=== PATIENT | female | born 1950 | race Caucasian/White ===

== ENCOUNTER 2016-05-07 09:39 | Emergency (ER) | payer OTHER ==
[2016-05-07 09:50] VITALS: TEMP 98; BMI 28.3
[2016-05-07] MEDS ORDERED: ALBUTEROL SO4 2.5/IPRATROPIUM 0.5 INH SOL 3 ML VIAL.NEB. NEB ONE ×2 (10:11→10:19)
[2016-05-07] MEDS ORDERED: predniSONE 20 MG TABLET (UD) PO ONE (10:12)
--- NOTE | 2016-05-07 10:12 | PDOC ---
History of Present Illness - General Chief Complaint: Asthma Stated Complaint: SOB, CONGESTED, COUGH (ASTHMA) Time Seen by Provider: 05/07/16 10:02 History Source: Patient Exam Limitations: No Limitations - History of Present Illness Initial Comments: 05/07/16 10:12 CHIEF COMPLAINT: Wheezing HISTORY OF PRESENT ILLNESS: This is a 65-year-old female with a history of asthma (no history of hospitalizations, uses albuterol MDI as needed) who presents for evaluation of 3 days of dry cough, wheezing, and chest tightness not relieved by albuterol inhaler. She denies fevers/chills, hemoptysis, leg pain/swelling, or any other symptoms. Vital signs on arrival are unremarkable. REVIEW OF SYSTEMS: GENERAL/CONSTITUTIONAL: No fever or chills. No weakness. No weight change. HEAD, EYES, EARS, NOSE AND THROAT: No change in vision. No ear pain or discharge. No sore throat. CARDIOVASCULAR: Chest tightness with coughing/deep breathing. No palpitations. No pain at rest. RESPIRATORY: See HPI. GASTROINTESTINAL: No nausea, vomiting, diarrhea or constipation. NEUROLOGIC: No headache, vertigo, loss of consciousness, or loss of sensation. HEMATOLOGIC/LYMPHATIC: No anemia, easy bleeding, or history of blood clots. ALLERGIC/IMMUNOLOGIC: No hives or skin allergy. No latex allergy. PHYSICAL EXAM: GENERAL: The patient is awake, alert, and fully oriented, in no acute distress. ENT: Pupils equal, round and reactive to light, extraocular movements intact, sclera anicteric, conjunctiva clear. Neck supple. LUNGS: Diffuse expiratory wheezing with decreased air movement. Speaking in full sentences. No tachypnea. CV: RRR, S1/S2, no MRG. Cap refill < 2 sec. ABDOMEN: Soft, non-distended, non-tender. EXTREMITIES: Normal range of motion, no edema. NEUROLOGICAL: Normal speech, normal gait. CN II-XII grossly intact. PSYCH: Normal mood, normal affect. SKIN: Warm, dry, normal turgor, no rashes or lesions noted. Past History - Past Medical History Allergies/Adverse Reactions: Allergies Allergy/AdvReac Type Severity Reaction Status Date / Time acetaminophen Allergy Intermediate Hives Verified 05/07/16 09:46 Home Medications: Ambulatory Orders Albuterol 0.083% Nebulizer Regina [Ventolin 0.083%] 1 neb NEB QID PRN 05/07/16 Albuterol Sulfate Inhaler - [Ventolin HFA Inhaler -] 1 - 2 inh PO Q4H #1 inhaler 05/07/16 Prednisone [Deltasone -] 40 mg PO DAILY #8 tablet 05/07/16 Asthma: Yes Cardiac Disorders: No - Family Disease History Family Disease History: Diabetes: Father - Psycho/Social/Smoking Cessation Hx Anxiety: No Suicidal Ideation: No Smoking History: Never smoked Have you smoked in the past 12 months: No Information on smoking cessation initiated: No Hx Alcohol Use: No Drug/Substance Use Hx: No Substance Use Type: None *Physical Exam - Vital Signs Last Vital Signs Temp Pulse Resp BP Pulse Ox 98.0 F 75 18 126/75 100 05/07/16 09:46 05/07/16 09:46 05/07/16 09:46 05/07/16 09:46 05/07/16 09:46 ED Treatment Course - RADIOLOGY Radiology Studies Ordered: Category Date Time Status CHEST PA & LAT [RAD] Stat Radiology 05/07/16 10:02 Ordered Medical Decision Making - Medical Decision Making 05/07/16 12:10 A/P: 65 year old female with exacerbation of asthma. -CXR -Duoneb followed by albuterol nebs -Prednisone 60mg PO x 1 -Reassess CXR reviewed and interpreted by radiology: no infiltrate Patient is feeling much better Speaking full sentences and ambulating without difficulty Followup instructions and return precautions reviewed *DC/Admit/Observation/Transfer Diagnosis at time of Disposition: Asthma exacerbation - Discharge Dispostion Disposition: HOME Admit: No - Prescriptions Prescriptions: Prednisone [Deltasone -] 40 mg PO DAILY #8 tablet Albuterol Sulfate Inhaler - [Ventolin HFA Inhaler -] 1 - 2 inh PO Q4H #1 inhaler - Referrals Referrals: Lizy Santillan MD [Primary Care Provider] - 2 Days - Patient Instructions Printed Discharge Instructions: Asthma -- Adult Additional Instructions: -Take prednisone as prescribed, starting tomorrow -Continue using albuterol inhaler as needed -Follow up with Dr. Luong this week -Return for worsening chest tightness/wheezing or any other concerning symptoms
[2016-05-07] MEDS ORDERED: predniSONE 20 MG TABLET (UD) ONE (10:18)
[2016-05-07] MEDS ORDERED: ALBUTEROL SO4 0.083% IH SOL 2.5 MG/3 ML VIAL.NEB. NEB ONE ×2 (10:19→11:24)
[2016-05-07] MEDS: ALBUTEROL SO4 0.083% IH SOL 2.5 MG/3 ML VIAL.NEB. NEB SCH ×3 (10:31→11:20)
[2016-05-07 13:04] VITALS: BP 121/70; PULSE 98
== END 2016-05-07 13:03 | disposition home or self-care (01) ==
LOC: JER 09:39
PROC: 3E0F7GC Introduction of Other Therapeutic Substance into Respiratory Tract, Via Natural or Artificial Opening (ICD-10-PCS; principal; 2016-05-07)
PROC: 3E0F7GC Introduction of Other Therapeutic Substance into Respiratory Tract, Via Natural or Artificial Opening (ICD-10-PCS; 2016-05-07)
DX: J45.901 Unspecified asthma with (acute) exacerbation (principal)
CPT/HCPCS: 71020-TC; 94640; 99281-25

== ENCOUNTER 2016-12-24 16:01 | Emergency (ER) | payer OTHER ==
[2016-12-24 16:23] VITALS: BP 125/61; PULSE 81; TEMP 98; BMI 27.1
--- NOTE | 2016-12-24 17:31 | PDOC ---
History of Present Illness - General Chief Complaint: Injury Stated Complaint: FALL/INJURY Time Seen by Provider: 12/24/16 17:14 History Source: Patient Exam Limitations: No Limitations - History of Present Illness Initial Comments: 12/24/16 18:23 Patient was walking yesterday when tripped over a manhole cover, falling forward and landing on both knees and wrists. States had mild whiplash injury, states felt relatively well yesterday but woke up today with multiple aches and pains. Worse pain is her right knee which is swollen and painful although able to bear weight. Also has some shoulder and mid back pain. Patient has a history of chronic back issues and feels that this fall re-exacerbated some of that pain. Has used ibuprofen with some minimal resolved. Occurred: reports: yesterday Severity: reports: mild, moderate Pain Location: reports: back, lower extremity (bilateral knees) Method of Injury: Yes: fall Modifying Factors: improves with: cold therapy Loss of Consciousness: no loss of consciousness Associated Symptoms (Fall): denies symptoms Past History - Travel Traveled outside of the country in the last 30 days: No Close contact w/someone who was outside of country & ill: No - Past Medical History Allergies/Adverse Reactions: Allergies Allergy/AdvReac Type Severity Reaction Status Date / Time acetaminophen Allergy Intermediate Hives Verified 12/24/16 16:54 Home Medications: Ambulatory Orders Albuterol Sulfate Inhaler - [Ventolin HFA Inhaler -] 1 - 2 inh PO Q4H #1 inhaler 05/07/16 Asthma: Yes Cardiac Disorders: No - Family Disease History Family Disease History: Diabetes: Father - Suicide/Smoking/Psychosocial Hx Smoking History: Former smoker Have you smoked in the past 12 months: No Number of Cigarettes Smoked Daily: 0 If you are a former smoker, when did you quit?: 1989 Information on smoking cessation initiated: No Hx Alcohol Use: No Drug/Substance Use Hx: No Substance Use Type: None Trauma Specific PMHX - Complaint Specific PMHX Back Injury: Yes Neck Injury: Yes Review of Systems - Review of Systems Able to Perform ROS?: Yes Is the patient limited French proficient: Yes Constitutional: Yes: Symptoms Reported, See HPI HEENTM: Yes: See HPI. No: Symptoms Reported Respiratory: No: Symptoms reported Musculoskeletal: Yes: Symptoms Reported, See HPI, Joint Pain (bilateral knees), Joint Swelling Integumentary: Yes: Symptoms Reported, See HPI, Bruising, Other (abrasion) Neurological: Yes: Symptoms reported, See HPI All Other Systems: Reviewed and Negative *Physical Exam - Vital Signs Last Vital Signs Temp Pulse Resp BP Pulse Ox 98 F 81 100 H 125/61 100 12/24/16 16:17 12/24/16 16:17 12/24/16 16:17 12/24/16 16:17 12/24/16 16:17 - Physical Exam General Appearance: Yes: Nourished, Appropriately Dressed, Apparent Distress, Mild Distress HEENT: positive: FELIX, Normal ENT Inspection, TMs Normal, Pharynx Normal Neck: positive: Tender, Supple, Other (her vertebral spinous muscle tenderness, no crepitus or step-offs to cervical spine. Has full range of motion in neck but complains of stiffness with movement) Respiratory/Chest: positive: Lungs Clear, Normal Breath Sounds Cardiovascular: positive: Regular Rate Gastrointestinal/Abdominal: positive: Normal Bowel Sounds, Soft Musculoskeletal: positive: Normal Inspection Extremity: positive: Normal Capillary Refill, Normal Range of Motion (however tender and swollen bilateral knees, worse on the right than the left. Patellas are both mobile, without crepitus or step-off. Has tenderness to inferior patella area and ill plateau. Range of motion is intact but has reproduced tenderness with extreme flexion. Neurovascular intact to both feet. Left knee is intact with intact patella without crepitus or step-offs. Medial and lateral nontender), Swelling. negative: Normal Inspection Integumentary: positive: Dry, Warm, Swelling (bilateral superficial abrasions to Castañeda's, with swelling and tenderness to superior tibia bilaterally. Has no crepitus or step-offs, patellas are mobile without deviation or deformity. Negative pain reproduced with medial or lateral ligamentous movement. Neurovascular intact to bilateral feet. Ambulatory but walks with mild limp due to right knee tenderness), Bruising Neurologic: positive: process expert II-XII NML intact, Fully Oriented, Alert, Normal Mood/ Affect, Normal Response, Motor Strength 5/5 Progress Note - Progress Note Progress Note: Status post fall with multiple contusions and knee strains. X-rays negative for fractures dislocations. We'll treat with NSAIDs, Andrea wrap and have follow up as needed with Orth O. reviewed x-ray with Dr. Andrey Amaya *DC/Admit/Observation/Transfer Diagnosis at time of Disposition: Multiple contusions - Discharge Dispostion Disposition: HOME Condition at time of disposition: Stable Admit: No - Referrals Referrals: Lizy Santlilan MD [Primary Care Provider] - Ramsey Jiménez MD [Staff Physician] - - Patient Instructions Printed Discharge Instructions: DI for Contusion, DI for Knee Sprain Additional Instructions: Rest, ice to area on and off for 15 minutes 4-6 times a day Avoid heavy lifting or exercise until pain and swelling is resolved or until further directed Keep area highly elevated to reduce swelling Use splints/Andrea wrap as directed Followup with orthopedist in one to 2 days if not improving, if significantly improved may wait one week for followup with orthopedist May use ibuprofen 2-200 mg tablets every 6 hours as needed for pain - Post Discharge Activity Forms/Work/School Notes: Back to Work
[2016-12-24] MEDS ORDERED: IBUPROFEN 600 MG TABLET (FP) PO ONE ×2 (17:32→17:34)
== END 2016-12-24 19:24 | disposition home or self-care (01) ==
LOC: JERFT 16:01
DX: S80.02XA Contusion of left knee, initial encounter (principal); S80.01XA Contusion of right knee, initial encounter; S60.212A Contusion of left wrist, initial encounter; S60.211A Contusion of right wrist, initial encounter; S83.8X2A Sprain of other specified parts of left knee, initial encounter; S83.8X1A Sprain of other specified parts of right knee, initial encounter; S63.592A Other specified sprain of left wrist, initial encounter; S63.591A Other specified sprain of right wrist, initial encounter; W01.0XXA Fall on same level from slipping, tripping and stumbling without subsequent striking against object, initial encounter; Y93.01 Activity, walking, marching and hiking; Y92.414 Local residential or business street as the place of occurrence of the external cause
CPT/HCPCS: 73562-TC-RT; 99281-25

== ENCOUNTER 2017-02-02 10:55 | Emergency (ER) | payer OTHER ==
[2017-02-02 11:05] VITALS: BP 129/69; TEMP 98.5; BMI 27.5
[2017-02-02 11:29] VITALS: PULSE 95
--- NOTE | 2017-02-02 11:29 | PDOC ---
History of Present Illness - General Chief Complaint: Sore Throat Stated Complaint: RESPIRATORY Time Seen by Provider: 02/02/17 11:17 History Source: Patient Exam Limitations: No Limitations - History of Present Illness Initial Comments: 02/02/17 11:23 66-year-old female presents to the ED with complaints of fever since yesterday which has resolved since last night. Patient states she continues with sore throat difficulty swallowing, and mild change in voice. Patient denies recent sick contacts, recent travel or recent illness. Patient denies medical history except for asthma but denies any wheezing or difficulty breathing. Patient states did not see her PCP and decided come to the ER today. Patient denies change in appetite. Timing/Duration: reports: yesterday Severity: reports: mild Associated Symptoms: reports: fever/chills, sore throat Past History - Travel Traveled outside of the country in the last 30 days: No - Past Medical History Allergies/Adverse Reactions: Allergies Allergy/AdvReac Type Severity Reaction Status Date / Time acetaminophen Allergy Intermediate Hives Verified 02/02/17 10:55 Home Medications: Ambulatory Orders Albuterol Sulfate Inhaler - [Ventolin HFA Inhaler -] 1 - 2 inh PO Q4H #1 inhaler 05/07/16 Amoxicillin - [Amoxicillin 500mg Capsule -] 500 mg PO BID #20 capsule 02/02/17 Amoxicillin - [Amoxicillin 500mg Capsule -] 500 mg PO BID #20 capsule 02/02/17 Asthma: Yes Cardiac Disorders: No COPD: No - Family Disease History Family Disease History: Diabetes: Father - Suicide/Smoking/Psychosocial Hx Smoking History: Never smoked Have you smoked in the past 12 months: No Number of Cigarettes Smoked Daily: 0 If you are a former smoker, when did you quit?: 1989 Information on smoking cessation initiated: No Hx Alcohol Use: No Drug/Substance Use Hx: No Substance Use Type: None Patient Lives Alone: No Lives with/in: spouse/SO Review of Systems - Review of Systems Able to Perform ROS?: Yes Constitutional: Yes: Fever HEENTM: Yes: Throat Pain Respiratory: No: Symptoms reported Cardiac (ROS): No: Symptoms Reported ABD/GI: No: Symptoms Reported Musculoskeletal: No: Symptoms Reported Integumentary: No: Symptoms Reported Neurological: No: Headache *Physical Exam - Vital Signs Last Vital Signs Temp Pulse Resp BP Pulse Ox 98.5 F 112 H 20 129/69 100 11/11/17 10:55 02/02/17 10:55 02/02/17 10:55 02/02/17 10:55 02/02/17 10:55 - Physical Exam General Appearance: Yes: Nourished, Appropriately Dressed. No: Apparent Distress HEENT: positive: TMs Normal, Pharyngeal Erythema, Tonsillar Exudate, Tonsillar Erythema (2+ tonsils bilateral). negative: Pale Conjunctivae Neck: positive: Supple, Lymphadenopathy (R) (upper cervical ) Respiratory/Chest: positive: Lungs Clear, Normal Breath Sounds. negative: Respiratory Distress, Accessory Muscle Use Cardiovascular: positive: Regular Rhythm, Tachycardia. negative: Murmur Gastrointestinal/Abdominal: positive: Soft. negative: Tenderness Integumentary: positive: Normal Color, Warm, Moist Neurologic: positive: Motor Strength 5/5 (ambulatory) Medical Decision Making - Medical Decision Making 02/02/17 11:26 Pt with sore throat, fever, and hoarse voice x 1 day. Pt arrives tachycardic at 112 with a temperature recorded at 98.5. Patient denies myalgia, arthralgia or chills. Clinically patient presents with strep tonsillitis. Pt not warm to touch. Cardiac rrr 95 Discharge pt home with supportive instructions and amoxicillin *DC/Admit/Observation/Transfer Diagnosis at time of Disposition: Strep tonsillitis - Discharge Dispostion Disposition: HOME Condition at time of disposition: Good - Prescriptions Prescriptions: Amoxicillin - [Amoxicillin 500mg Capsule -] 500 mg PO BID #20 capsule Amoxicillin - [Amoxicillin 500mg Capsule -] 500 mg PO BID #20 capsule - Referrals Referrals: Lizy Santillan MD [Primary Care Provider] - - Patient Instructions Printed Discharge Instructions: DI for Strep Throat Additional Instructions: Please take antibiotics as prescribed. Avoid harsh abrasive foods. Take motrin or tylenol for pain. Use chloraseptic spray as needed for pain also. - Post Discharge Activity
== END 2017-02-02 11:32 | disposition home or self-care (01) ==
LOC: JERFT 10:55
DX: J03.00 Acute streptococcal tonsillitis, unspecified (principal); B95.5 Unspecified streptococcus as the cause of diseases classified elsewhere
CPT/HCPCS: 99281-25

== ENCOUNTER 2017-06-23 12:31 | Emergency (ER) | payer OTHER ==
[2017-06-23 12:46] VITALS: BP 122/70; PULSE 118; TEMP 98.2; BMI 28.0
--- NOTE | 2017-06-23 12:46 | PDOC ---
History of Present Illness - General History Source: Patient Exam Limitations: No Limitations - History of Present Illness Initial Comments: 06/23/17 13:14 The patient is a 66-year-old female with a significant past medical history of asthma, who presents to the emergency department for wheezing since last night. She states she was walking up a hill when she started to have difficulty breathing, and notes her wheezing worsened as she walked up some stairs. She admits to a mild cough. She had two albuterol inhaler treatments at home with no significant relief. She denies any history of hospitalization for asthma, but has been given steroid treatments. She denies any recent sickness. The patient denies chest pain, headache and dizziness. The patient denies fever , chills, rhinorrhea, sore throat, nausea, vomit, diarrhea and constipation. The patient denies dysuria, frequency, urgency and hematuria. Allergies: acetaminophen Past Surgical History: None reported Social History: Former smoker. No other toxic habits reported PCP: Dr. Lizy Blackwell <Ambar Omer - Last Filed: 06/23/17 13:14> <Regla Goldman - Last Filed: 06/23/17 14:15> - General Chief Complaint: Asthma Stated Complaint: ASTHMA Time Seen by Provider: 06/23/17 12:42 Past History <Ambar Omer - Last Filed: 06/23/17 13:14> - Past Medical History Asthma: Yes Cardiac Disorders: No COPD: No - Family Disease History Family Disease History: Diabetes: Father - Suicide/Smoking/Psychosocial Hx Smoking History: Never smoked Have you smoked in the past 12 months: No Number of Cigarettes Smoked Daily: 0 If you are a former smoker, when did you quit?: 1989 Information on smoking cessation initiated: No Hx Alcohol Use: No Drug/Substance Use Hx: No Substance Use Type: None <Regla Goldman - Last Filed: 06/23/17 14:15> - Past Medical History Allergies/Adverse Reactions: Allergies Allergy/AdvReac Type Severity Reaction Status Date / Time acetaminophen Allergy Intermediate Hives Verified 06/23/17 12:46 Home Medications: Ambulatory Orders Albuterol Sulfate Inhaler - [Ventolin HFA Inhaler -] 1 - 2 inh PO Q4H #1 inhaler 05/07/16 Albuterol Sulfate Inhaler - [Ventolin Hfa Inhaler -] 1 - 2 inh PO Q4H PRN #1 inhaler 06/23/17 predniSONE [Deltasone -] 40 mg PO DAILY #8 tablet 06/23/17 Review of Systems - Review of Systems Able to Perform ROS?: Yes Comments:: 06/23/17 13:15 GENERAL/CONSTITUTIONAL: No fever or chills. No weakness. HEAD, EYES, EARS, NOSE AND THROAT: No change in vision. No ear pain or discharge. No sore throat. CARDIOVASCULAR: (+) Shortness of breath. No chest pain. RESPIRATORY: (+) Cough. (+) Wheezing. No hemoptysis. GASTROINTESTINAL: No nausea, vomiting, diarrhea or constipation. GENITOURINARY: No dysuria, frequency, or change in urination. MUSCULOSKELETAL: No joint or muscle swelling or pain. No neck or back pain. SKIN: No rash NEUROLOGIC: No headache, vertigo, loss of consciousness, or change in strength/ sensation. ENDOCRINE: No increased thirst. No abnormal weight change. HEMATOLOGIC/LYMPHATIC: No anemia, easy bleeding, or history of blood clots. ALLERGIC/IMMUNOLOGIC: No hives or skin allergy. <Ambar Omer - Last Filed: 06/23/17 13:14> *Physical Exam - Vital Signs Last Vital Signs Temp Pulse Resp BP Pulse Ox 98.2 F 118 H 18 122/70 100 06/23/17 12:33 06/23/17 12:33 06/23/17 12:33 06/23/17 12:33 06/23/17 12:33 - Physical Exam Comments: 06/23/17 13:15 GENERAL: Awake, alert, and fully oriented, in no acute distress HEAD: No signs of trauma EYES: PERRLA, EOMI, sclera anicteric, conjunctiva clear ENT: Auricles normal inspection, hearing grossly normal, nares patent, oropharynx clear without exudates. Moist mucosa NECK: Normal ROM, supple, no lymphadenopathy, JVD, or masses LUNGS: (+) Wheezing in all marx. No conversational dyspnea. Speaking in full sentences. No crackles HEART: Regular rate and rhythm, normal S1 and S2, no murmurs, rubs or gallops ABDOMEN: Soft, nontender, normoactive bowel sounds. No guarding, no rebound. No masses EXTREMITIES: Normal range of motion, no edema. No clubbing or cyanosis. No cords, erythema, or tenderness NEUROLOGICAL: Cranial nerves II through XII grossly intact. Normal speech SKIN: Warm, Dry, normal turgor, no rashes or lesions noted. <Ambar Omer - Last Filed: 06/23/17 13:14> - Vital Signs Last Vital Signs Temp Pulse Resp BP Pulse Ox 98.2 F 118 H 18 122/70 100 06/23/17 12:33 06/23/17 12:33 06/23/17 12:33 06/23/17 12:33 06/23/17 12:33 <Regla Goldman - Last Filed: 06/23/17 14:15> Heart Score/ECG Review - ECG Intrepretation Comment:: 06/23/17 12:55 sinus at 94, nl axis, nl interval, t wave inversions III - which are nonspecific , no acute prachi/std <Regla Goldman - Last Filed: 06/23/17 14:15> Medical Decision Making - Medical Decision Making 06/23/17 12:54 a/p: 66yo female with hx of asthma with wheezing today -nontoxic in appearance -speaking in full sentences -nonproductive cough - mild -no f/c -no rhinorrhea/sore throat/somers -will monitor and reassess -suspect mild asthma exacerbation 06/23/17 13:46 re-eval: feeling much better still with wheezing will give another breathing treatment will send rx of ventolin and prednisone to pharmacy 06/23/17 14:14 re-eval: feeling much better lungs with soft end expiroatyr wheezing, much improved. discussed all reasons to return to the ED and need for follow up answered all questions <Regla Goldman - Last Filed: 06/23/17 14:15> *DC/Admit/Observation/Transfer - Attestations Scribe Attestion: 06/23/17 13:15 Documentation prepared by Ambar Omer, acting as medical insurance claims processor for Regla Goldman DO, MD/. <Ambar Omer - Last Filed: 06/23/17 13:14> - Discharge Dispostion Admit: No - Attestations Physician Attestion: 06/23/17 13:49 I, Dr. Regla Goldman, DO, attest that this document has been prepared under my direction and personally reviewed by me in its entirety. I further attest, that it accurately reflects all work, treatment, procedures and medical decision -making performed by me. <Regla Goldman - Last Filed: 06/23/17 14:15> Diagnosis at time of Disposition: Asthma exacerbation - Discharge Dispostion Disposition: HOME Condition at time of disposition: Stable - Prescriptions Prescriptions: Albuterol Sulfate Inhaler - [Ventolin Hfa Inhaler -] 1 - 2 inh PO Q4H PRN #1 inhaler PRN Reason: Wheezing predniSONE [Deltasone -] 40 mg PO DAILY #8 tablet - Referrals Referrals: Lizy Santillan MD [Primary Care Provider] - Everton Khoury MD, [Staff Physician] - - Patient Instructions Printed Discharge Instructions: Asthma -- Adult Additional Instructions: Please take all medications as prescribed. Please return to the ED with any further concerns. Please make an appointment to see your PMD. Please make an appointment to see the flexible babysitter. - Post Discharge Activity
[2017-06-23] MEDS ORDERED: ALBUTEROL SO4 2.5/IPRATROPIUM 0.5 INH SOL 3 ML VIAL.NEB. NEB ONE ×4 (12:51→13:46)
[2017-06-23] MEDS ORDERED: predniSONE 20 MG TABLET (UD) PO ONE (12:52)
[2017-06-23] MEDS ORDERED: predniSONE 20 MG TABLET (UD) ONE (13:24)
--- NOTE | 2017-06-24 11:37 | EKG ---
Test Reason : Blood Pressure : / mmHG Vent. Rate : 094 BPM Atrial Rate : 094 BPM P-R Int : 134 ms QRS Dur : 088 ms QT Int : 374 ms P-R-T Axes : 071 074 011 degrees QTc Int : 467 ms NORMAL SINUS RHYTHM POSSIBLE LEFT ATRIAL ENLARGEMENT BORDERLINE ECG WHEN COMPARED WITH ECG OF 24-JUN-2015 18:42, NO SIGNIFICANT CHANGE WAS FOUND Confirmed by MYLES MONTANA MD ([id number]) on 06/24/2017 11:37:32 AM Referred By: Confirmed By:MYLES MONTANA MD
== END 2017-06-23 15:02 | disposition home or self-care (01) ==
LOC: JER 12:31
PROC: 3E0F7GC Introduction of Other Therapeutic Substance into Respiratory Tract, Via Natural or Artificial Opening (ICD-10-PCS; principal; 2017-06-23)
PROC: 3E0F7GC Introduction of Other Therapeutic Substance into Respiratory Tract, Via Natural or Artificial Opening (ICD-10-PCS; 2017-06-23)
PROC: 3E0F7GC Introduction of Other Therapeutic Substance into Respiratory Tract, Via Natural or Artificial Opening (ICD-10-PCS; 2017-06-23)
DX: J45.901 Unspecified asthma with (acute) exacerbation (principal)
CPT/HCPCS: 93005; 93010; 94640; 99282-25

== ENCOUNTER 2017-08-15 12:14 | Emergency (ER) | payer OTHER ==
[2017-08-15 12:43] VITALS: BP 123/67; PULSE 90; TEMP 98.8; BMI 28.0
[2017-08-15] MEDS ORDERED: KETOROLAC TROMETHAMINE 60 MG/2 ML VIAL IM ONE (13:10)
--- NOTE | 2017-08-15 13:18 | PDOC ---
History of Present Illness - General Chief Complaint: Back Pain Stated Complaint: RT HIP PAIN Time Seen by Provider: 08/15/17 12:53 History Source: Patient Exam Limitations: No Limitations - History of Present Illness Initial Comments: 08/15/17 13:18 c/o lower back to the right lower back and the buttock radiates to lateral thigh. no abd pain , neg fever neg urinary or bowel dysfunction. 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 Pt has history of sciatica. Severity: reports: mild Pain Location: reports: back Past History - Past Medical History Allergies/Adverse Reactions: Allergies Allergy/AdvReac Type Severity Reaction Status Date / Time acetaminophen Allergy Intermediate Hives Verified 08/15/17 12:40 Home Medications: Ambulatory Orders Naproxen [Naprosyn] 500 mg PO BID #14 tablet 08/15/17 Asthma: Yes Cardiac Disorders: No COPD: No Other medical history: DENIES. - Family Disease History Family Disease History: Diabetes: Father - Suicide/Smoking/Psychosocial Hx Smoking History: Former smoker Have you smoked in the past 12 months: No Number of Cigarettes Smoked Daily: 0 If you are a former smoker, when did you quit?: 1989 Information on smoking cessation initiated: No Hx Alcohol Use: No Drug/Substance Use Hx: No Substance Use Type: None Trauma Specific PMHX - Complaint Specific PMHX Back Injury: Yes Neck Injury: Yes *Physical Exam - Vital Signs Last Vital Signs Temp Pulse Resp BP Pulse Ox 98.8 F 90 19 123/67 98 08/15/17 12:41 08/15/17 12:41 08/15/17 12:41 08/15/17 12:41 08/15/17 12:41 - Physical Exam General Appearance: Yes: Nourished, Appropriately Dressed HEENT: positive: EOMI, FELIX Neck: negative: Tender Respiratory/Chest: positive: Lungs Clear, Normal Breath Sounds Cardiovascular: positive: Regular Rhythm, Regular Rate Musculoskeletal: positive: Normal Inspection, Other (pos SLR right side at 45 degrees, nv intact 5/5 strength of the leg, steady gait no diffucuclty ambulating ). negative: CVA Tenderness, CVA Tenderness (R), CVA Tenderness (L) , Decreased Range of Motion, Muscle Spasm, Vertebral Tenderness Extremity: positive: Normal Capillary Refill, Normal Inspection, Normal Range of Motion Integumentary: positive: Normal Color, Dry, Warm Neurologic: positive: Fully Oriented, Alert, Normal Mood/Affect, Normal Response , Motor Strength 07/27 Medical Decision Making - Medical Decision Making 08/15/17 13:22 cc: lower back to right buttock pain to right lateral thigh neg abd pain neg nvd neg fever or injury pt has pain with sitting exacerbated with standing will give toradol now dc with naprosyn and strict follow up with orthopedist *DC/Admit/Observation/Transfer Diagnosis at time of Disposition: Sciatica Qualifiers: Laterality: right Qualified Code(s): M54.31 - Sciatica, right side - Discharge Dispostion Disposition: HOME Condition at time of disposition: Good - Prescriptions Prescriptions: Naproxen [Naprosyn] 500 mg PO BID #14 tablet - Referrals Referrals: Lizy Santillan MD [Primary Care Provider] - - Patient Instructions Additional Instructions: apply warm compresses to the lower back every 4hrs for 30 minutes take the medication as prescribed for pain please follow with your primary care doctor for follow up avoid heavy lifting when you can return if any worsening symptoms - Post Discharge Activity
[2017-08-15] MEDS ORDERED: KETOROLAC TROMETHAMINE 60 MG/2 ML VIAL ONE (13:19)
== END 2017-08-15 13:55 | disposition home or self-care (01) ==
LOC: JERFT 12:14
PROC: 3E0233Z Introduction of Anti-inflammatory into Muscle, Percutaneous Approach (ICD-10-PCS; principal; 2017-08-15)
DX: M54.41 Lumbago with sciatica, right side (principal); Z87.09 Personal history of other diseases of the respiratory system; Z87.891 Personal history of nicotine dependence
CPT/HCPCS: 99281-25

== ENCOUNTER 2017-09-16 14:50 | Emergency (ER) | payer OTHER ==
--- NOTE | 2017-09-16 14:56 | PDOC ---
Rapid Medical Evaluation Time Seen by Provider: 09/16/17 14:54 Medical Evaluation: Allergies Allergy/AdvReac Type Severity Reaction Status Date / Time acetaminophen Allergy Intermediate Hives Verified 08/15/17 12:40 09/16/17 14:54 I have performed a brief in-person evaluation of this patient. The patient presents with a chief complaint of:cough and nasal congestion X 4 days Pertinent physical exam findings: nasal congestion, course rhonchi and expiratory wheeze, pt is in NAD I have ordered the following: CXR The patient will proceed to the fast track for further evaluation. 09/16/17 14:59 09/16/17 15:02
[2017-09-16 15:02] VITALS: BP 123/82; PULSE 88; TEMP 98; BMI 29.7
[2017-09-16] MEDS ORDERED: predniSONE 20 MG TABLET (UD) PO ONE (16:35)
[2017-09-16] MEDS ORDERED: ALBUTEROL SO4 2.5/IPRATROPIUM 0.5 INH SOL 3 ML VIAL.NEB. NEB ONE ×2 (16:35→16:39)
--- NOTE | 2017-09-16 16:35 | PDOC ---
History of Present Illness - General Chief Complaint: Asthma Stated Complaint: SOB (ASTHMA) Time Seen by Provider: 09/16/17 14:54 History Source: Patient Exam Limitations: No Limitations - History of Present Illness Initial Comments: 09/16/17 16:34 Patient here with complaints of what she thinks is a sinus exacerbation due to ALLERGIES. Has taken no medications but has needed to use her albuterol pump for the past few days. Complaint thick yellow phlegm, runny nose, and sore throat pain worse in the morning. States this felt feverish and chills but has no fever today. 09/16/17 16:34 Timing/Duration: reports: changing over time, getting worse Severity: reports: mild, moderate Modifying Factors: improves with: albuterol inhaler, albuterol nebulizer Associated Symptoms: reports: facial pain, fever/chills, headache, nasal drainage, sore throat, wheezing Past History - Travel Traveled outside of the country in the last 30 days: No Close contact w/someone who was outside of country & ill: No - Past Medical History Allergies/Adverse Reactions: Allergies Allergy/AdvReac Type Severity Reaction Status Date / Time acetaminophen Allergy Intermediate Hives Verified 09/16/17 14:59 Home Medications: Ambulatory Orders Cetirizine HCl [Zyrtec -] 10 mg PO DAILY #30 tablet 09/16/17 predniSONE [Deltasone -] 20 mg PO BID #8 tablet 09/16/17 Asthma: Yes Cardiac Disorders: No CVA: No COPD: No DVT: No - Family Disease History Family Disease History: Diabetes: Father - Suicide/Smoking/Psychosocial Hx Smoking History: Never smoked Have you smoked in the past 12 months: No Number of Cigarettes Smoked Daily: 0 If you are a former smoker, when did you quit?: 1989 Information on smoking cessation initiated: No Hx Alcohol Use: No Drug/Substance Use Hx: No Substance Use Type: None Review of Systems - Review of Systems Able to Perform ROS?: Yes Is the patient limited Persian proficient: Yes Constitutional: Yes: Symptoms Reported, See HPI, Fever, Loss of Appetite, Malaise HEENTM: Yes: Symptoms Reported, See HPI, Nose Congestion Respiratory: Yes: Symptoms reported, See HPI, Cough, Wheezing Musculoskeletal: Yes: Symptoms Reported Integumentary: Yes: Symptoms Reported, See HPI All Other Systems: Reviewed and Negative *Physical Exam - Vital Signs Last Vital Signs Temp Pulse Resp BP Pulse Ox 98.0 F 88 18 123/82 100 09/16/17 15:00 09/16/17 15:00 09/16/17 15:00 09/16/17 15:00 09/16/17 15:00 - Physical Exam General Appearance: Yes: Nourished, Appropriately Dressed, Apparent Distress, Mild Distress HEENT: positive: FELIX, TMs Normal (congested but landmarks easily visualized), Pharynx Normal, Tonsillar Erythema, Rhinorrhea. negative: Tonsillar Exudate Neck: positive: Supple, Lymphadenopathy (R), Lymphadenopathy (L). negative: Tender Respiratory/Chest: positive: Lungs Clear, Wheezing (course inspiratory and expiratory breath sounds, bilaterally). 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 We'll treat with prednisone and DuoNeb's reevaluated *DC/Admit/Observation/Transfer Diagnosis at time of Disposition: Asthma exacerbation Qualifiers: Asthma severity: mild Asthma persistence: intermittent Qualified Code(s): J45.21 - Mild intermittent asthma with (acute) exacerbation Allergic rhinitis Qualifiers: Allergic rhinitis trigger: unspecified Allergic rhinitis seasonality: seasonal Qualified Code(s): J30.2 - Other seasonal allergic rhinitis - Discharge Dispostion Disposition: HOME Condition at time of disposition: Stable Decision to Admit order: No - Prescriptions Prescriptions: Cetirizine HCl [Zyrtec -] 10 mg PO DAILY #30 tablet predniSONE [Deltasone -] 20 mg PO BID #8 tablet - Referrals Referrals: Jaimie Garcia MD [Primary Care Provider] - - Patient Instructions Printed Discharge Instructions: Asthma -- Adult Additional Instructions: Rest, drink lots of fluids: Teas, water, soups, Pedialyte Saltwater gargles Steamy showers/seem to face break up mucus Avoid contact with others until fevers and cough resolved Lots of handwashing and good hygiene Continue [id number] medications for symptomatic relief Tylenol or Motrin for fever and pain Continue albuterol nebulizers every 4-6 hours for the next 2 days then as needed for continued cough Prednisone as directed until completed Continue Zyrtec daily until pollen is reduced Followup with private physician in one to 2 days Return to emergency department / pediatric hospital for worsened symptoms, fevers, dehydration - Post Discharge Activity
[2017-09-16] MEDS ORDERED: predniSONE 20 MG TABLET (UD) ONE (16:39)
== END 2017-09-16 17:10 | disposition home or self-care (01) ==
LOC: JERFT 14:50
PROC: 3E0F7GC Introduction of Other Therapeutic Substance into Respiratory Tract, Via Natural or Artificial Opening (ICD-10-PCS; principal; 2017-09-16)
DX: J45.901 Unspecified asthma with (acute) exacerbation (principal); J30.2 Other seasonal allergic rhinitis
CPT/HCPCS: 71046-TC-FY; 94640; 99281-25; J7620

== ENCOUNTER 2018-03-27 07:35 | Emergency (ER) | payer OTHER ==
[2018-03-27 07:42] VITALS: BP 137/70; PULSE 107; TEMP 98.6; BMI 29.7
--- NOTE | 2018-03-27 08:57 | PDOC ---
History of Present Illness - General Chief Complaint: Palpitations Stated Complaint: HEART PALPITATIONS Time Seen by Provider: 03/27/18 08:11 History Source: Patient Exam Limitations: No Limitations - History of Present Illness Initial Comments: 03/27/18 09:00 67-year-old female with history of asthma and high cholesterol here for evaluation of intermittent palpitations and shortness of breath since ' [place]. Patient states symptoms began while watching TV and is resolved within minutes. Patient states symptoms have not aggravating factors such as movement increased stress. Patient also states history of anxiety but states has not had an episode in like 3 years. Patient denies thyroid disorders, recent change in weight, urinary difficulties, fever, chills, abdominal pain, headache, dizziness , chest pain or recent travel/surgery Presenting Symptoms: Other (palpitations) Timing/Duration: reports: intermittent Severity/Quality: reports: mild Activities at Onset: reports: none Prior Chest Pain/Cardiac Workup: reports: Other (holter monitor) Associated Symptoms: Yes: Palpitations Past History - Travel Traveled outside of the country in the last 30 days: No - Past Medical History Allergies/Adverse Reactions: Allergies Allergy/AdvReac Type Severity Reaction Status Date / Time acetaminophen Allergy Intermediate Hives Verified 09/16/17 14:59 Home Medications: Ambulatory Orders Cetirizine HCl [Zyrtec -] 10 mg PO DAILY #30 tablet 09/16/17 predniSONE [Deltasone -] 20 mg PO BID #8 tablet 09/16/17 Asthma: Yes Cardiac Disorders: No CVA: No COPD: No DVT: No - Family Disease History Family Disease History: Diabetes: Father - Immunization History Immunization Up to Date: Yes - Suicide/Smoking/Psychosocial Hx Smoking History: Never smoked Have you smoked in the past 12 months: No Number of Cigarettes Smoked Daily: 0 If you are a former smoker, when did you quit?: 1989 Information on smoking cessation initiated: No Hx Alcohol Use: No Drug/Substance Use Hx: No Substance Use Type: None Patient Lives Alone: No Lives with/in: spouse/SO Review of Systems - Review of Systems Able to Perform ROS?: Yes Constitutional: No: Symptoms Reported HEENTM: No: Symptoms Reported Respiratory: Yes: Shortness of Breath Cardiac (ROS): Yes: Palpitations. No: Chest Pain, Lightheadedness ABD/GI: No: Symptoms Reported : No: Symptoms Reported Musculoskeletal: No: Symptoms Reported Integumentary: No: Symptoms Reported Neurological: No: Symptoms reported *Physical Exam - Vital Signs Last Vital Signs Temp Pulse Resp BP Pulse Ox 98.6 F 107 H 22 H 137/70 99 03/27/18 07:39 03/27/18 07:39 03/27/18 07:39 03/27/18 07:39 03/27/18 07:39 - Physical Exam General Appearance: Yes: Nourished, Appropriately Dressed. No: Apparent Distress HEENT: negative: Pale Conjunctivae Neck: positive: Supple Respiratory/Chest: positive: Wheezing (on expiration bilaterally). negative: Respiratory Distress, Accessory Muscle Use Cardiovascular: positive: Regular Rhythm, Tachycardia (103). negative: Murmur Extremity: negative: Pedal Edema Integumentary: positive: Normal Color, Warm, Moist Neurologic: positive: Motor Strength 5/5 (ambulatory) Heart Score/ECG Review - ECG Intrepretation Rhythm: Regular Rhythm (rate 103, sinus tachycardia) - ECG Impressions Normal ECG: Yes Moderate Sedation - Procedure Monitoring Vital Signs: Procedure Monitoring Vital Signs Temperature 98.6 F 03/27/18 07:39 Pulse Rate 107 H 03/27/18 07:39 Respiratory Rate 22 H 03/27/18 07:39 Blood Pressure 137/70 03/27/18 07:39 O2 Sat by Pulse Oximetry (%) 99 03/27/18 07:39 ED Treatment Course - LABORATORY CBC & Chemistry Diagram: 03/27/18 09:00 03/27/18 09:00 - ADDITIONAL ORDERS Additional order review: Laboratory Results 03/27/18 03/27/18 09:00 09:00 D-Dimer 328 Sodium 140 Potassium 4.1 Chloride 107 Carbon Dioxide 25 Anion Gap 8 BUN 19 H Creatinine 0.7 Creat Clearance w eGFR > 60 Random Glucose 95 Calcium 9.0 Total Bilirubin 0.4 AST 24 ALT 35 Alkaline Phosphatase 87 Creatine Kinase 64 Troponin I < 0.02 Total Protein 7.9 Albumin 4.1 TSH 3.97 H 03/27/18 09:00 RBC 4.61 MCV 89.5 MCHC 34.5 RDW 13.8 MPV 8.0 Neutrophils % 52.7 D Lymphocytes % 29.5 D Monocytes % 7.3 Eosinophils % 10.0 H D Basophils % 0.5 - RADIOLOGY Radiology Studies Ordered: Category Date Time Status CHEST - PA [RAD] Stat Radiology 03/27/18 08:12 Completed Medical Decision Making - Medical Decision Making 03/27/18 08:50 Complaint: Intermittent palpitations and shortness of breath since New Year's [place] no aggravating or alleviating factors. No other complaints. Patient states history of the same in the past seen a disbursing agent but does not follow one presently. Patient denies thyroid disorders, drug use, recent travel, cough, headache, fever or chills Sinus tachycardia at 103 no murmur patient with expiratory bilateral wheeze. Patient states history of asthma and did not use inhaler today Plan: EKG, chest x-ray, cardiac monitoring, cardiac profile, CBC, comp TSH. 03/27/18 11:03 Laboratory Tests 03/27/18 03/27/18 09:00 09:00 D-Dimer 328 Sodium 140 Potassium 4.1 Chloride 107 Carbon Dioxide 25 Anion Gap 8 BUN 19 H Creatinine 0.7 Random Glucose 95 Calcium 9.0 Total Bilirubin 0.4 AST 24 ALT 35 Alkaline Phosphatase 87 Creatine Kinase 64 Troponin I < 0.02 Total Protein 7.9 Albumin 4.1 TSH 3.97 H Pt states has not had palpitations since arrival. Will give consult to cardiology and have pt bring copy of labs to PMD ( TSH) *DC/Admit/Observation/Transfer Diagnosis at time of Disposition: Palpitations - Discharge Dispostion Disposition: HOME Condition at time of disposition: Good - Referrals Referrals: Chas Keller MD [Staff Physician] - - Patient Instructions Printed Discharge Instructions: DI for Palpitations Additional Instructions: At this this time, you have been discharged and recommended to follow up with cardiology. If you develop worsening symptoms, please return to the ED - Post Discharge Activity
[2018-03-27 09:17] LABS: BASO % 0.5 % (0-2.0); HEMATOCRIT 41.2 % (32.4-45.2); HEMOGLOBIN 14.2 GM/dL (10.7-15.3); LYMPH % 29.5 % (8-40); MCH 30.9 pg (25.7-33.7); MCHC 34.5 g/dl (32.0-36.0); MEAN CELL VOLUME 89.5 fl (80-96); MONO % 7.3 % (3.8-10.2); NEUT % 52.7 % (42.8-82.8); PLATELET COUNT 335 K/MM3 (134-434); RBC 4.61 M/mm3 (3.60-5.2); RDW 13.8 % (11.6-15.6); WHITE BLOOD COUNT 4.5 K/mm3 (4.0-10.0)
[2018-03-27 10:19] LABS: ALBUMIN 4.1 g/dl (3.4-5.0); ALK PHOS 87 U/L (45-117); ANION GAP 8 MMOL/L (8-16); BILIRUBIN,TOTAL 0.4 mg/dL (0.2-1); BLOOD UREA NITROGEN 19 mg/dL (7-18); CHLORIDE 107 mmol/L (98-107); CO2 25 mmol/L (21-32); CREATININE 0.7 mg/dL (0.55-1.3); GLUCOSE,RANDOM 95 mg/dL (74-106); POTASSIUM 4.1 mmol/L (3.5-5.1); SGOT/AST 24 U/L (15-37); SGPT/ALT 35 U/L (13-61); SODIUM 140 mmol/L (136-145); TOT PROT 7.9 g/dl (6.4-8.2)
[2018-03-27 11:32] LABS: URINE APPEARANCE CLEAR; URINE BILIRUBIN NEGATIVE (<2.0 mg/dL); URINE COLOR LTYELLOW; URINE GLUCOSE (UA) NEGATIVE (NEGATIVE); URINE KETONE NEGATIVE (NEGATIVE); URINE LEUK ESTERASE NEGATIVE (NEGATIVE); URINE NITRITE NEGATIVE (NEGATIVE); URINE PROTEIN NEGATIVE (NEGATIVE); URINE UROBILINOGEN NEGATIVE mg/dL (0.2-1.0)
--- NOTE | 2018-03-27 16:16 | EKG ---
Test Reason : Blood Pressure : / mmHG Vent. Rate : 103 BPM Atrial Rate : 103 BPM P-R Int : 152 ms QRS Dur : 084 ms QT Int : 372 ms P-R-T Axes : 071 071 000 degrees QTc Int : 487 ms SINUS TACHYCARDIA POSSIBLE LEFT ATRIAL ENLARGEMENT BORDERLINE ECG WHEN COMPARED WITH ECG OF 23-JUN-2017 12:47, NO SIGNIFICANT CHANGE WAS FOUND Confirmed by ALECIA MOLINA MD ([id number]) on 03/27/2018 4:16:02 PM Referred By: Confirmed By:ALECIA MOLINA MD
== END 2018-03-27 11:34 | disposition home or self-care (01) ==
LOC: JER 07:35
DX: R00.2 Palpitations (principal)
CPT/HCPCS: 36415; 71045-TC-FY; 80053; 81003; 82550; 84443; 84484; 85025; 85379; 93005; 93010; 99282-25

== ENCOUNTER 2018-12-18 12:11 | Emergency (ER) | payer OTHER ==
[2018-12-18 12:17] VITALS: BP 131/63; PULSE 109; TEMP 98.4; BMI 29.5
--- NOTE | 2018-12-18 13:47 | PDOC ---
History of Present Illness - General Chief Complaint: Cold Symptoms Stated Complaint: ASTHMA Time Seen by Provider: 12/18/18 13:44 History Source: Patient Exam Limitations: No Limitations - History of Present Illness Initial Comments: 12/18/18 15:23 Chief complaint: Cough Patient is a 68-year-old female with a history of asthma, has not bothered her since last winter when she was seen in the ER comes in with 2 days of cough, runny nose and concerned she has bronchitis. Shouldn't has not used her inhaler or nebulizer. No fever or shortness of breath GENERAL/CONSTITUTIONAL: No fever, weakness. dizziness HEAD, EYES, EARS, NOSE AND THROAT: No change in vision. No ear pain or discharge. No sore throat. CARDIOVASCULAR: No chest pain RESPIRATORY: No shortness of breath +cough GASTROINTESTINAL: No pain, nausea, vomiting, diarrhea or constipation GENITOURINARY: No dysuria MUSCULOSKELETAL: No neck or back pain SKIN: No rash NEUROLOGIC: No headache, vertigo, loss of consciousness, or loss of sensation. GENERAL: The patient is awake, alert, and fully oriented, in no acute distress. HEAD: Normal with no signs of trauma. EYES: Pupils equal, round and reactive to light, sclera anicteric, conjunctiva clear. ENT: pharynx: no erythema, no exudate, uvula midline NECK: supple CHEST: Interval wheezing, no shortness of breath, nontender, rr ABD: soft, nontender BACK: no tenderness or signs of injury EXTREMITIES: Normal range of motion, no edema. NEUROLOGICAL: Normal speech, normal gait. SKIN: Warm, Dry Is this a multiple visit Asthma Patient?: Yes Past History - Past Medical History Allergies/Adverse Reactions: Allergies Allergy/AdvReac Type Severity Reaction Status Date / Time acetaminophen Allergy Intermediate Hives Verified 12/18/18 12:17 Home Medications: Ambulatory Orders Cetirizine HCl [Zyrtec -] 10 mg PO DAILY #30 tablet 09/16/17 predniSONE [Deltasone -] 20 mg PO BID #8 tablet 09/16/17 Albuterol Sulfate Inhaler - [Ventolin Hfa Inhaler -] 2 inh PO Q4H #1 inh Prednisone [Deltasone] 40 mg PO DAILY #8 tablet 12/18/18 Asthma: Yes Cardiac Disorders: No CVA: No COPD: No DVT: No - Immunization History Immunization Up to Date: Yes - Psycho Social/Smoking Cessation Hx Smoking History: Never smoked Have you smoked in the past 12 months: No Number of Cigarettes Smoked Daily: 0 If you are a former smoker, when did you quit?: 1989 Information on smoking cessation initiated: No Hx Alcohol Use: No (SOCIAL) Drug/Substance Use Hx: No Substance Use Type: None *Physical Exam - Vital Signs Last Vital Signs Temp Pulse Resp BP Pulse Ox 98.4 F 109 H 20 131/63 98 12/18/18 12:14 12/18/18 12:14 12/18/18 12:14 12/18/18 12:14 12/18/18 12:14 Medical Decision Making - Medical Decision Making 12/18/18 15:27 68-year-old female with history of asthma, no episodes in the past 9-10 months. Patient with URI symptoms 2 days, no fever, no shortness of breath, has not used her asthma meds was found to have minimal wheezing with out signs of respiratory distress. No imaging indicated. Patient will get one nebulizer treatment here, start on prednisone. Asthma plan initiated an order sent to respiratory. Asthma action plan filled out with patient. Patient sent home with Ventolin inhaler, has nebulizer at home and meds for the nebulizer. Also that on 5 days of prednisone and explained to her about the Flovent, prescribed 44 g per inhalation. Patient felt better after one treatment. She will follow-up with her doctor by early next week and return if worse. Discussed issues, findings, results, applicable medications and treatments and follow-up. All these were understood and all questions were answered Discharge - Discharge Information Problems reviewed: Yes Clinical Impression/Diagnosis: URI (upper respiratory infection) Qualifiers: URI type: unspecified URI Qualified Code(s): J06.9 - Acute upper respiratory infection, unspecified Asthma Qualifiers: Asthma severity: mild Asthma persistence: unspecified Asthma complication type : uncomplicated Qualified Code(s): J45.909 - Unspecified asthma, uncomplicated Condition: Stable Disposition: HOME - Admission No - Additional Discharge Information Prescriptions: Albuterol Sulfate Inhaler - [Ventolin Hfa Inhaler -] 2 inh PO Q4H #1 inh Prednisone [Deltasone] 40 mg PO DAILY #8 tablet Prescription Drug Monitoring Program (I-STOP) results: I-STOP not reviewed - Follow up/Referral - Patient Discharge Instructions Patient Printed Discharge Instructions: Asthma -- Adult, DI for Viral Upper Respiratory Infection -- Adult Additional Instructions: Use albuterol inhaler, 2 puffs every 4 hours as needed for wheezing. Take prednisone 40 mg once daily until finished. After he finished the, use the Flovent every day, until you follow-up with your doctor and they tell you whether to continue with it Return to the ER if fever, shortness of breath or getting sicker. Otherwise follow-up with your doctor in one to 2 days - Post Discharge Activity
[2018-12-18] MEDS ORDERED: ALBUTEROL SO4 2.5/IPRATROPIUM 0.5 INH SOL 3 ML VIAL.NEB. NEB ONE ×2 (13:56→13:57)
[2018-12-18] MEDS ORDERED: predniSONE 20 MG TABLET (UD) PO ONE (13:56)
[2018-12-18] MEDS ORDERED: predniSONE 20 MG TABLET (UD) ONE (14:41)
== END 2018-12-18 15:17 | disposition home or self-care (01) ==
LOC: JERFT 12:11
PROC: 3E0F7GC Introduction of Other Therapeutic Substance into Respiratory Tract, Via Natural or Artificial Opening (ICD-10-PCS; principal; 2018-12-18)
DX: J06.9 Acute upper respiratory infection, unspecified (principal); J45.909 Unspecified asthma, uncomplicated
CPT/HCPCS: 99281-25

== ENCOUNTER 2019-03-02 10:01 | Emergency (ER) | payer OTHER ==
[2019-03-02 10:12] VITALS: TEMP 98; BMI 28.5
--- NOTE | 2019-03-02 10:54 | PDOC ---
History of Present Illness - General Chief Complaint: Chest Pain Stated Complaint: CHEST PAIN Time Seen by Provider: 03/02/19 10:46 - History of Present Illness Initial Comments: Ms. Hung is a 68 y/o female with PMH significant for asthma, presenting today with heart palpitations. Reports that she has had heart palpitations over the past year and has been worked up with a haltar monitor and seen a assistant administrator, who attributed it to stress. Not prescribed any medications for the heart palpitations. She reports that she gets these episodes a few times a week, but over the past few days has been having them several times per day. Reports that she feels her heart racing and sometimes skipping a beat. Reports that drinking water or going for a walk outside often help slow down her heart rate. She reports chest tightness when she feels her heart racing, but this resolves once the heart racing stops. Reports intermittent associated dizziness with the heart palpitation episodes. Denies shortness of breath. Denies abdominal pain/ urinary symptoms/diarrhea. PMH: asthma SocHx: denies ETOH, drug use, caffeine Past History - Past Medical History Allergies/Adverse Reactions: Allergies Allergy/AdvReac Type Severity Reaction Status Date / Time acetaminophen Allergy Intermediate Hives Verified 03/02/19 10:12 Home Medications: Ambulatory Orders Cetirizine HCl [Zyrtec -] 10 mg PO DAILY #30 tablet 09/16/17 predniSONE [Deltasone -] 20 mg PO BID #8 tablet 09/16/17 Albuterol Sulfate Inhaler - [Ventolin Hfa Inhaler -] 2 inh PO Q4H #1 inh predniSONE [Deltasone] 40 mg PO DAILY #8 tablet 12/18/18 Asthma: Yes Cardiac Disorders: No CVA: No COPD: No DVT: No - Immunization History Immunization Up to Date: Yes - Psycho Social/Smoking Cessation Hx Smoking History: Never smoked Have you smoked in the past 12 months: No Number of Cigarettes Smoked Daily: 0 If you are a former smoker, when did you quit?: 1989 Information on smoking cessation initiated: No Hx Alcohol Use: No Drug/Substance Use Hx: No Substance Use Type: None Review of Systems - Review of Systems Comments:: GENERAL/CONSTITUTIONAL: No fever or chills. No weakness._ HEAD, EYES, EARS, NOSE AND THROAT: No change in vision. No change in hearing. No sore throat._ CARDIOVASCULAR: Reports heart palpitations. No chest pain or shortness of breath _ RESPIRATORY: Denies cough, hemoptysis_ GASTROINTESTINAL: No nausea, vomiting, diarrhea or constipation._ GENITOURINARY: No dysuria, frequency, or change in urination._ MUSCULOSKELETAL: No joint or muscle swelling or pain. No neck or back pain._ SKIN: No rash_ NEUROLOGIC: No headache, vertigo, loss of consciousness, or change in strength/ sensation._ ENDOCRINE: No increased thirst. No abnormal weight change_ HEMATOLOGIC/LYMPHATIC: No anemia, easy bleeding, or history of blood clots._ ALLERGIC/IMMUNOLOGIC: No hives or skin allergy._ *Physical Exam - Vital Signs Last Vital Signs Temp Pulse Resp BP Pulse Ox 98.0 F 90 16 118/69 100 03/02/19 10:02 03/02/19 11:00 03/02/19 11:00 03/02/19 11:00 03/02/19 11:00 - Physical Exam GENERAL: Awake, alert, and oriented to person/place/time, in no acute distress_ HEAD: No signs of trauma, normocephalic, atraumatic _ EYES: PERRLA, EOMI, sclera anicteric, conjunctiva clear_ ENT: Hearing grossly normal, nares patent, oropharynx clear without exudates. No uvular deviation. Moist mucosa_ NECK: Normal ROM, supple, no lymphadenopathy, JVD, or masses_ LUNGS: No distress, speaks in full sentences, clear to auscultation bilaterally _ HEART: Regular rate and rhythm, normal S1 and S2, no murmurs appreciated, peripheral pulses normal and equal bilaterally._ ABDOMEN: Soft, nontender, normoactive bowel sounds. No guarding, no rebound. No masses_ EXTREMITIES: Normal inspection, Normal range of motion, no edema. No clubbing or cyanosis_ NEUROLOGICAL: Cranial nerves II through XII grossly intact. Normal speech, normal gait, no focal sensorimotor deficits _ SKIN: Warm, Dry, normal turgor, no rashes or lesions noted_ ED Treatment Course - LABORATORY CBC & Chemistry Diagram: 03/02/19 11:30 03/02/19 11:30 - ADDITIONAL ORDERS Additional order review: Laboratory Results 03/02/19 03/02/19 11:30 11:30 Sodium 142 Potassium 3.8 Chloride 108 H Carbon Dioxide 26 Anion Gap 8 BUN 12.1 Creatinine 0.6 Est GFR (CKD-EPI)AfAm 110.08 Est GFR (CKD-EPI)NonAf 94.98 Random Glucose 90 Calcium 9.1 Total Bilirubin 0.5 AST 18 ALT 31 Alkaline Phosphatase 74 Creatine Kinase 40 Troponin I < 0.02 Total Protein 6.9 Albumin 3.4 TSH 2.78 03/02/19 11:30 RBC 4.45 MCV 91.2 MCHC 33.9 RDW 14.0 MPV 8.3 Neutrophils % 43.8 Lymphocytes % 37.1 D Monocytes % 9.5 Eosinophils % 9.0 H Basophils % 0.6 Medical Decision Making - Medical Decision Making 03/02/19 10:53 68F presenting today with heart palpitations and racing. -cbc, cmp, tsh -ekg, trop, cxr 03/02/19 10:59 EKG shows NSR, 95 bpm, no ST elevation/depression, QTc 492, AR 136. 03/02/19 11:45 Labs reviewed. Laboratory Tests 03/02/19 03/02/19 03/02/19 11:30 11:30 11:30 WBC 4.0 RBC 4.45 Hgb 13.8 Hct 40.6 MCV 91.2 MCH 31.0 MCHC 33.9 RDW 14.0 Plt Count 275 MPV 8.3 Absolute Neuts (auto) 1.7 Neutrophils % 43.8 Lymphocytes % 37.1 D Monocytes % 9.5 Eosinophils % 9.0 H Basophils % 0.6 Nucleated RBC % 0 Sodium 142 Potassium 3.8 Chloride 108 H Carbon Dioxide 26 Anion Gap 8 BUN 12.1 Creatinine 0.6 Est GFR (CKD-EPI)AfAm 110.08 Est GFR (CKD-EPI)NonAf 94.98 Random Glucose 90 Calcium 9.1 Total Bilirubin 0.5 AST 18 ALT 31 Alkaline Phosphatase 74 Creatine Kinase 40 Troponin I < 0.02 Total Protein 6.9 Albumin 3.4 TSH 2.78 03/02/19 11:57 CXR shows no acute pulmonary disease. 03/02/19 13:00 Discussed test results with the patient and the importance of following up with cardiology and PCP for further management and care. Plan to d/c home. Patient verbalized understanding and agreement with the plan. All questions answered. Return precautions given. Discharge - Discharge Information Problems reviewed: Yes Clinical Impression/Diagnosis: Palpitations Condition: Stable Disposition: HOME - Admission No - Follow up/Referral Referrals: Rupali Justin MD [Staff Physician] - - Patient Discharge Instructions Patient Printed Discharge Instructions: DI for Palpitations Additional Instructions: Please make an appointment with a assistant administrator (a referral here has been provided for you) to follow up your heart palpitations. The assistant administrator will be able to further diagnose and treat your heart palpitations. Please make an appointment with your primary care doctor to follow up for your heart palpitations and any stress or related anxiety. If you experience any new, worsening, or concerning symptoms, including severe chest pain, shortness of breath, - Post Discharge Activity
--- NOTE | 2019-03-02 11:44 | PDOC ---
Documentation entered by Mayo Aragon SCRIBE, acting as scribe for Kyle Ayala MD. Kyle Ayala MD: This documentation has been prepared by the Mahesh pierre Xhesika, SCRIBE, under my direction and personally reviewed by me in its entirety. I confirm that the documentation accurately reflects all work, treatment, procedures, and medical decision making performed by me. Attending Attestation - Resident Resident Name: BrianCleve - ED Attending Attestation I have performed the following: I have examined & evaluated the patient, The case was reviewed & discussed with the resident, I agree w/resident's findings & plan, Exceptions are as noted - HPI HPI: 03/02/19 11:01 The patient is a 68 year old female with a significant past medical history of asthma, who presents to the emergency department for multiple episodes of heart palpitations since yesterday. Pt states she has been endorsing heart palpitations for the past year, was seen by a application development liaison, worked up with holter monitor and was noted to be stress related. Pt describes her symptoms as chest pressure/tightness, feels like her heart has an extra beat, associated with dizziness and SOB, relieved by drinking water and going outside. The patient denies chest pain, SOB, headache. The patient denies fever, chills, rhinorrhea, sore throat, nausea, vomiting, diarrhea, melena, bpr and constipation. The patient denies dysuria, frequency, urgency and hematuria. Allergies: acetaminophen 03/02/19 11:46 - Physicial Exam PE: 03/02/19 11:02 GENERAL: The patient is awake, alert, and fully oriented, Nontoxic - in no acute distress. HEAD: Normocephalic, atraumatic. EYES: extraocular movements intact, sclera anicteric, conjunctiva clear. ENT: Normal voice, Moist mucous membranes. NECK: Normal range of motion, supple without lymphadenopathy, JVD, or masses. LUNGS: Breath sounds equal, clear to auscultation bilaterally. No wheezes, no crackles, no rales. HEART: Regular rate and rhythm, normal S1 and S2 without murmur, rub or gallop. ABDOMEN: Soft, nontender, normoactive bowel sounds. No guarding, no rebound. No masses. EXTREMITIES: Normal range of motion, no edema. No clubbing or cyanosis. No cords, erythema, or tenderness. NEUROLOGICAL: No facial asymmetry, Normal speech, normal gait. PSYCH: Normal mood, normal affect. SKIN: Warm, Dry, normal turgor, no rashes or lesions noted. - Medical Decision Making 03/02/19 11:11 68y F hx of asthma presens with palpiations over the past week. pt endorses palpitation with workup by cardiology intermitently over the past year without a definitive diagnosis. Pt endorses sob, lightheadedness with her palpitations recently withou any chest pain. Patient notes that her palpitations are occasionally feels like an extra beat sometimes it is going rapidly, but it usually lasts only minutes at a time before resolving. Patient's thinks this may be related to stress as due to the holidays. Patient states she is been worked up for this approximately 10 years ago and was told everything was okay. She denies any EtOH abuse, recreational drug use. Will obtain EKG, blood work to rule out arrhythmias, metabolic derangements Will place the patient on the monitoring coordinator Bedside echo does not reveal any acute abnormalities Patient may benefit from a Holter monitor from cardiology as an outpatient Heart Score/ECG Review - ECG Impressions Comment:: 03/02/19 11:43 Twelve-lead EKG was performed and reviewed by me. There is normal sinus rhythm with a normal rate. Rate of 95 The axis is normal. QT interval 492
[2019-03-02 11:47] LABS: BASO % 0.6 % (0-2.0); HEMATOCRIT 40.6 % (32.4-45.2); HEMOGLOBIN 13.8 GM/dL (10.7-15.3); LYMPH % 37.1 % (8-40); MCHC 33.9 g/dl (32.0-36.0); MEAN CELL VOLUME 91.2 fl (80-96); MEAN PLT VOLUME 8.3 fl (7.5-11.1); MONO % 9.5 % (3.8-10.2); NEUT % 43.8 % (42.8-82.8); PLATELET COUNT 275 K/MM3 (134-434); RBC 4.45 M/mm3 (3.60-5.2)
[2019-03-02 12:23] LABS: ALBUMIN 3.4 g/dl (3.4-5.0); BILIRUBIN,TOTAL 0.5 mg/dL (0.2-1); BLOOD UREA NITROGEN 12.1 mg/dL (7-18); CALCIUM 9.1 mg/dL (8.5-10.1); CREATININE 0.6 mg/dL (0.55-1.3); POTASSIUM 3.8 mmol/L (3.5-5.1); TOT PROT 6.9 g/dl (6.4-8.2)
[2019-03-02 13:46] VITALS: BP 118/69; PULSE 90
--- NOTE | 2019-03-03 09:07 | EKG ---
Test Reason : Blood Pressure : / mmHG Vent. Rate : 095 BPM Atrial Rate : 095 BPM P-R Int : 136 ms QRS Dur : 088 ms QT Int : 392 ms P-R-T Axes : 067 066 020 degrees QTc Int : 492 ms NORMAL SINUS RHYTHM POSSIBLE LEFT ATRIAL ENLARGEMENT PROLONGED QT ABNORMAL ECG WHEN COMPARED WITH ECG OF 27-MAR-2018 07:49, NO SIGNIFICANT CHANGE WAS FOUND Confirmed by Cleve Allison MD ([id number]) on 03/03/2019 9:07:12 AM Referred By: Confirmed By:Cleve Allison MD
== END 2019-03-02 13:47 | disposition home or self-care (01) ==
LOC: JER 10:01
DX: R00.2 Palpitations (principal); J45.909 Unspecified asthma, uncomplicated; Z88.6 Allergy status to analgesic agent
CPT/HCPCS: 36415; 71045-TC-FY; 80053; 82550; 84443; 84484; 85025; 93005; 93010; 99283-25

== ENCOUNTER 2019-11-01 10:22 | Emergency (ER) | payer OTHER ==
[2019-11-01 10:27] VITALS: TEMP 98.8; BMI 28.3
[2019-11-01] MEDS: ALBUTEROL SO4 2.5/IPRATROPIUM 0.5 INH SOL 3 ML VIAL.NEB. NEB SCH ×4 (11:15→12:17)
[2019-11-01] MEDS ORDERED: ALBUTEROL SO4 2.5/IPRATROPIUM 0.5 INH SOL 3 ML VIAL.NEB. NEB ONE (11:24)
--- NOTE | 2019-11-01 11:29 | PDOC ---
History of Present Illness - General Chief Complaint: Pain Stated Complaint: NECK PAIN Time Seen by Provider: 11/01/19 10:59 History Source: Patient Exam Limitations: No Limitations - History of Present Illness Initial Comments: 11/01/19 11:25 69-year-old female past medical history of asthma hypertension presenting the ED complaining of chest and neck pain radiating down her left arm. Patient states that for the last 3 days she has had progressively worsening neck pain as well as chest pain not associated with shortness of breath or exertion which radiates down her left arm. Patient took Motrin as well as use lidocaine patch without any relief. Patient was seen in urgent care and sent to the ED for further management. Does not recall any injury or inciting event. pt otherwise denies: fevers, chills, syncope, lightheadedness, dizziness, headaches, shortness of starr ath, palpitations, back pain, abdominal pain, nausea, vomiting, diarrhea, constipation. Past History - Medical History Allergies/Adverse Reactions: Allergies Allergy/AdvReac Type Severity Reaction Status Date / Time acetaminophen Allergy Intermediate Hives Verified 11/01/19 10:26 Home Medications: Ambulatory Orders Albuterol Sulfate Inhaler - [Ventolin Hfa Inhaler -] 2 inh PO Q4H #1 inh 9 Asthma: Yes Cardiac Disorders: No CVA: No COPD: No DVT: No - Reproductive History Is Patient Now?: No - Immunization History Immunization Up to Date: Yes - Psycho-Social/Smoking History Smoking History: Never smoked Have you smoked in the past 12 months: No Number of Cigarettes Smoked Daily: 0 If you are a former smoker, when did you quit?: 1989 - Substance Abuse Hx (Audit-C & DAST Scrn) How often the patient has a drink containing alcohol: Never Score: In Men: 4 or > Positive; In Women: 3 or > Positive: 0 Screen Result (Pos requires Nsg. Audit-10AR): Negative *Physical Exam - Vital Signs Last Vital Signs Temp Pulse Resp BP Pulse Ox 98.8 F 111 H 18 143/83 99 11/01/19 10:24 11/01/19 10:24 11/01/19 10:24 11/01/19 10:24 11/01/19 10:24 - Physical Exam 11/01/19 11:26 Gen: AAOx 3, no acute distress, comfortable, no signs of respiratory distress HENT: atraumatic, normocephalic with no laceration or contusion. Nasal mucosa without erythema. Oropharynx without erythema or exudates. Mucous membranes moist. EYES: PERRL, EOM intact, conjunctiva pink NECK: supple; trachea midline; no JVD, no lymphadenopathy, or thyromegaly CV: RRR no murmurs, gallops, or rubs. Reproducible pain on chest wall palpation CHEST: b/l wheezing,no rales or rhonchi ABD: +BS/ND. no TTP; soft, no rebound, no guarding EXTREMITY: no cyanosis or erythema. 2+ dorsalis pedis, posterior tibial, and radial pulse. No pedal edema; no calf swelling or tenderness SKIN: no rash, warm and dry, no diaphoresis HEME: no purpura or ecchymosis NEURO: normal speech, CN II-XII intact, sensation intact, normal gait, no cerebellar deficits MS: 5/5 strength in all extremities, FROM intact in all extremities. ED Treatment Course - LABORATORY CBC & Chemistry Diagram: 11/01/19 11:15 11/01/19 11:15 - RADIOLOGY Radiology Studies Ordered: Category Date Time Status CHEST PA & LAT [RAD] Stat Radiology 11/01/19 11:09 Ordered Medical Decision Making - Medical Decision Making 11/01/19 11:26 39-year-old female past medical history of asthma hypertension complaining of chest neck pain radiating down her left arm Vital signs stable except tachycardia to 110's Physical exam significant for wheezing bilaterally Will obtain labs EKG chest x-ray Will administer duo nebs for symptomatic relief Will reassess based on results EKG sinus tachycardia with pvcs and flat T in V3 Chest XR with pulmonary vascular congestion Labs WNL except slightly elevated BNP Heart score 4 Wheezing resolved with duo nebs x 3 Still Tachycardic to 110's 1 L NS given as well as IVP Toradol Will admit to cardiac observation for further management of care Pt states she feels better and is refusing admission to cardiac obs I have a detailed conversation with the patient outlining risks vs benefits as well as the potential harm that could come to her. Pt understands these risks and has signed the AMA form. Pt is AOx 3 and has full decision making capacity. Pt is informed of the benefits of staying for evaluation/treatment and the risks of leaving AMA, including worsening of symptoms, permanent diasbility, and . Pt understands and would still like to leave AMA. Pt given discharge instructions and told to f/u with PMD. 11/01/19 14:20 Discharge - Discharge Information Problems reviewed: Yes Clinical Impression/Diagnosis: Chest pain Qualifiers: Chest pain type: unspecified Qualified Code(s): R07.9 - Chest pain, unspecified Condition: Stable Disposition: AGAINST MEDICAL ADVICE - Follow up/Referral Referrals: ON STAFF,NOT [Primary Care Provider] - - Patient Discharge Instructions Patient Printed Discharge Instructions: DI for Atypical Chest Pain Additional Instructions: YOU ARE LEAVING AGAINST MEDICAL ADVICE YOU SHOULD RETURN TO THE ED IF YOUR SYMPTOMS WORSEN YOU SHOULD FOLLOW UP WITH YOUR PCP AT THE VERY LEAST YOU ARE ASSUMING THESE RISKS AND THEY MAY IMPACT YOUR HEALTH - Post Discharge Activity
[2019-11-01 12:05] LABS: BASO % 0.2 % (0-2.0); EOS % 2.5 % (0-4.5); HEMOGLOBIN 13.6 GM/dL (10.7-15.3); LYMPH % 14.2 % (8-40); MCHC 33.3 g/dl (32.0-36.0); MEAN CELL VOLUME 93.1 fl (80-96); MEAN PLT VOLUME 8.7 fl (7.5-11.1); MONO % 6.8 % (3.8-10.2); NEUT % 76.3 % (42.8-82.8); PLATELET COUNT 300 K/MM3 (134-434); RDW 13.5 % (11.6-15.6); WHITE BLOOD COUNT 7.4 K/mm3 (4.0-10.0)
[2019-11-01 12:12] LABS: INR 0.96 (0.83-1.09); PROTHROMBIN TIME (PATIENT) 11.3 SEC (9.7-13.0)
[2019-11-01 12:32] LABS: BLOOD UREA NITROGEN 11.5 mg/dL (7-18); TOT PROT 7.6 g/dl (6.4-8.2)
[2019-11-01 12:33] LABS: ALBUMIN 3.7 g/dl (3.4-5.0); ALK PHOS 100 U/L (45-117); ANION GAP 5 MMOL/L (8-16); BILIRUBIN,TOTAL 0.5 mg/dL (0.2-1); CALCIUM 9.4 mg/dL (8.5-10.1); CHLORIDE 106 mmol/L (98-107); CO2 28 mmol/L (21-32); CREATININE 0.6 mg/dL (0.55-1.3); GLUCOSE,RANDOM 98 mg/dL (74-106); N-TERMINAL BNP 186.3 pg/ml (5-125); POTASSIUM 3.9 mmol/L (3.5-5.1); SGOT/AST 45 U/L (15-37); SGPT/ALT 48 U/L (13-61); SODIUM 140 mmol/L (136-145)
[2019-11-01] MEDS ORDERED: KETOROLAC TROMETHAMINE 15 MG/ML VIAL IVPUSH ONE (12:48)
[2019-11-01] MEDS ORDERED: SODIUM CHLORIDE 0.9% 500 ML INFUS.BAG IV ONE (12:48)
[2019-11-01] MEDS ORDERED: KETOROLAC TROMETHAMINE 15 MG/ML VIAL ONE (12:50)
[2019-11-01 14:40] VITALS: BP 136/75; PULSE 106
--- NOTE | 2019-11-02 09:18 | EKG ---
Test Reason : Blood Pressure : / mmHG Vent. Rate : 110 BPM Atrial Rate : 110 BPM P-R Int : 154 ms QRS Dur : 084 ms QT Int : 360 ms P-R-T Axes : 071 059 012 degrees QTc Int : 487 ms SINUS TACHYCARDIA WITH OCCASIONAL PREMATURE VENTRICULAR COMPLEXES POSSIBLE LEFT ATRIAL ENLARGEMENT BORDERLINE ECG WHEN COMPARED WITH ECG OF 02-MAR-2019 10:09, PREMATURE VENTRICULAR COMPLEXES ARE NOW PRESENT Confirmed by Chikis Joe ([id number]) on 11/02/2019 9:18:00 AM Referred By: Confirmed By:Chikis Joe
== END 2019-11-01 14:34 | disposition left against medical advice (07) ==
LOC: SUPCPDRO 10:22 → JER 10:22
PROC: 3E033GC Introduction of Other Therapeutic Substance into Peripheral Vein, Percutaneous Approach (ICD-10-PCS; principal; 2019-11-01)
PROC: 3E0F7GC Introduction of Other Therapeutic Substance into Respiratory Tract, Via Natural or Artificial Opening (ICD-10-PCS; principal; 2019-11-01)
DX: R07.9 Chest pain, unspecified (principal)
CPT/HCPCS: 36415; 71046-TC-FY; 80053; 82550; 83880; 84443; 84484; 85025; 85610; 93005; 93010; 99285-25

== ENCOUNTER 2021-06-04 13:29 | Emergency (ER) | payer MEDICARE, OTHER ==
[2021-06-04 13:38] VITALS: BP 114/57; PULSE 107; TEMP 97.5; BMI 25.4
[2021-06-04] MEDS ORDERED: predniSONE 20 MG TABLET (UD) PO ONE (14:19)
[2021-06-04] MEDS ORDERED: predniSONE 20 MG TABLET (UD) ONE (14:21)
== END 2021-06-04 14:50 | disposition home or self-care (01) ==
LOC: JER 13:29 → JERFT 13:29
DX: J45.41 Moderate persistent asthma with (acute) exacerbation (principal)
CPT/HCPCS: 99283-25

== ENCOUNTER 2022-11-03 03:13 | Emergency (ER) | payer MEDICARE ==
[2022-11-03] MEDS ORDERED: ALBUTEROL SO4 2.5/IPRATROPIUM 0.5 INH SOL 3 ML VIAL.NEB. NEB ONE ×3 (03:35)
[2022-11-03] MEDS ORDERED: DEXAMETHASONE SOD PHOSPHATE 10 MG/1 ML VIAL IVPUSH ONE (03:35)
[2022-11-03 03:36] VITALS: BP 144/81; PULSE 78; RESP 19; TEMP 98.5; BMI 27.6
[2022-11-03] MEDS ORDERED: DEXAMETHASONE SOD PHOSPHATE 10 MG/1 ML VIAL ONE (03:40)
[2022-11-03 04:03] LABS: BASO % 0.9 % (0-2.0); EOS % 17.3 % (0-4.5); HEMATOCRIT 41.7 % (32.4-45.2); HEMOGLOBIN 14.5 GM/dL (10.7-15.3); LYMPH % 23.1 % (8-40); MCH 31.8 pg (25.7-33.7); MCHC 34.8 g/dl (32.0-36.0); MEAN CELL VOLUME 91.3 fl (80-96); MEAN PLT VOLUME 7.7 fl (7.5-11.1); MONO % 5.9 % (3.8-10.2); NEUT % 52.8 % (42.8-82.8); PLATELET COUNT 322 10^3/uL (134-434); RBC 4.57 M/mm3 (3.60-5.2); RDW 13.6 % (11.6-15.6); WHITE BLOOD COUNT 5.7 K/mm3 (4.0-10.0)
[2022-11-03 04:11] LABS: INR 1.03 (0.83-1.09); PROTHROMBIN TIME (PATIENT) 11.9 SEC (9.7-13.0)
[2022-11-03 04:23] LABS: CALCIUM 8.9 mg/dL (8.5-10.1)
[2022-11-03 04:24] LABS: ALBUMIN 3.5 g/dl (3.4-5.0); BLOOD UREA NITROGEN 21.8 mg/dL (7-18)
[2022-11-03 04:27] LABS: CREATININE 0.7 mg/dL (0.55-1.3)
[2022-11-03 04:29] LABS: BILIRUBIN,TOTAL 0.3 mg/dL (0.2-1); TOT PROT 7.3 g/dl (6.4-8.2)
[2022-11-03] MEDS ORDERED: ALBUTEROL SO4 0.083% IH SOL 2.5 MG/3 ML VIAL.NEB. NEB ONE ×2 (05:08→05:15)
[2022-11-03] MEDS ORDERED: MAGNESIUM SULFATE IN WATER 2 GM/50 ML IVPB IVPB ONE (05:08)
[2022-11-03] MEDS ORDERED: AZITHROMYCIN IVPB 500 MG in DEXTROSE 5%-WATER - 250 ML IVPB ONE (05:11)
[2022-11-03] MEDS ORDERED: CEFTRIAXONE 1 GM in DEXTROSE 5%-WATER - 50 ML IVPB ONE (05:11)
[2022-11-03] MEDS ORDERED: MONTELUKAST NA 5 MG TAB.CHEW PO ONE (05:15)
[2022-11-03] MEDS ORDERED: SODIUM CHLORIDE 0.9% 500 ML INFUS.BAG IV ONE (05:15)
[2022-11-03] MEDS ORDERED: MAGNESIUM SULF 50% (8.12 MEQ/2 ML-1 GM VIAL) ONE (05:15)
[2022-11-03] MEDS ORDERED: CEFTRIAXONE 1 GM/50 ML BAG ONE (05:58)
[2022-11-03] MEDS ORDERED: AZITHROMYCIN IVPB 500 MG/250 ML BAG IVPB ONE (05:58)
[2022-11-03] MEDS ORDERED: MONTELUKAST NA 10 MG TABLET ONE (06:11)
== END 2022-11-03 07:07 | disposition left against medical advice (07) ==
LOC: JER 03:13
PROC: 3E03329 Introduction of Other Anti-infective into Peripheral Vein, Percutaneous Approach (ICD-10-PCS; principal; 2022-11-03)
PROC: 3E0F7GC Introduction of Other Therapeutic Substance into Respiratory Tract, Via Natural or Artificial Opening (ICD-10-PCS; 2022-11-03)
PROC: 3E0F7GC Introduction of Other Therapeutic Substance into Respiratory Tract, Via Natural or Artificial Opening (ICD-10-PCS; 2022-11-03)
DX: J45.901 Unspecified asthma with (acute) exacerbation (principal); Z20.822 Contact with and (suspected) exposure to COVID-19
CPT/HCPCS: 36415; 71045-TC-FY; 80053; 84484; 85025; 85610; 87635; 93005; 93010; 94640; 96368; 99285-25; J1100

== ENCOUNTER 2023-08-14 11:01 | Emergency (ER) | payer MEDICARE ==
[2023-08-14 11:13] VITALS: BP 121/74; PULSE 118; RESP 18; TEMP 98.3; BMI 27.6
[2023-08-14] MEDS ORDERED: DEXAMETHASONE SOD PHOSPHATE 10 MG/1 ML VIAL ONE (13:44)
[2023-08-14] MEDS ORDERED: ALBUTEROL SO4 2.5/IPRATROPIUM 0.5 INH SOL 3 ML VIAL.NEB. NEB ONE (13:44)
[2023-08-14] MEDS: ALBUTEROL SO4 2.5/IPRATROPIUM 0.5 INH SOL 3 ML VIAL.NEB. NEB ONE (13:51)
[2023-08-14] MEDS: DEXAMETHASONE SOD PHOSPHATE 10 MG/1 ML VIAL IM ONE (13:51)
[2023-08-14] MEDS ORDERED: ALBUTEROL SO4 0.083% IH SOL 2.5 MG/3 ML VIAL.NEB. NEB ONE (14:40)
[2023-08-14] MEDS: ALBUTEROL SULFATE 0.021% (0.63 MG/3 ML) VIAL.NEB NEB ONE (14:42)
[2023-08-14] MEDS: ALBUTEROL SO4 0.083% IH SOL 2.5 MG/3 ML VIAL.NEB. NEB ONE (14:42)
== END 2023-08-14 15:40 | disposition home or self-care (01) ==
LOC: JER 11:01
PROC: 3E023GC Introduction of Other Therapeutic Substance into Muscle, Percutaneous Approach (ICD-10-PCS; principal; 2023-08-14)
PROC: 3E0F7GC Introduction of Other Therapeutic Substance into Respiratory Tract, Via Natural or Artificial Opening (ICD-10-PCS; 2023-08-14)
PROC: 3E0F7GC Introduction of Other Therapeutic Substance into Respiratory Tract, Via Natural or Artificial Opening (ICD-10-PCS; 2023-08-14)
DX: R06.02 Shortness of breath (principal); J45.909 Unspecified asthma, uncomplicated; J30.2 Other seasonal allergic rhinitis
CPT/HCPCS: 93005; 93010; 99284-25; J1100

== ENCOUNTER 2023-09-08 14:42 | Emergency (ER) | payer MEDICARE ==
[2023-09-08 14:47] VITALS: BP 137/61; PULSE 110; RESP 18; TEMP 98.4; BMI 26.7
[2023-09-08 15:19] LABS: VENOUS BASE EXCESS 0.1 mmol/L (-2-2); VENOUS O2 SATURATION 67.3 % (70-80); VENOUS PCO2 43.2 mmHg (38-52); VENOUS PH 7.386 (7.310-7.410)
[2023-09-08 15:20] LABS: BASO % 0.6 % (0-2.0); EOS % 10.4 % (0-4.5); HEMOGLOBIN 13.2 GM/dL (10.7-15.3); LYMPH % 20.4 % (8-40); MCH 30.5 pg (25.7-33.7); MCHC 33.8 g/dl (32.0-36.0); MEAN CELL VOLUME 90.5 fl (80-96); MEAN PLT VOLUME 7.3 fl (7.5-11.1); NEUT % 56.6 % (42.8-82.8); PLATELET COUNT 266 10^3/uL (134-434); RBC 4.31 M/mm3 (3.60-5.2); RDW 13.8 % (11.6-15.6); WHITE BLOOD COUNT 4.2 K/mm3 (4.0-10.0)
[2023-09-08] MEDS ORDERED: ALBUTEROL SO4 2.5/IPRATROPIUM 0.5 INH SOL 3 ML VIAL.NEB. NEB ONE ×2 (15:20→15:58)
[2023-09-08] MEDS ORDERED: DEXAMETHASONE SOD PHOSPHATE 10 MG/1 ML VIAL ONE (15:20)
[2023-09-08] MEDS: ALBUTEROL SO4 2.5/IPRATROPIUM 0.5 INH SOL 3 ML VIAL.NEB. NEB ONE ×2 (15:29→15:58)
[2023-09-08] MEDS: DEXAMETHASONE SOD PHOSPHATE 10 MG/1 ML VIAL IM ONE (15:29)
[2023-09-08 15:40] LABS: POTASSIUM 3.3 mmol/L (3.5-5.1)
[2023-09-08 15:43] LABS: CALCIUM 8.9 mg/dL (8.5-10.1)
[2023-09-08 15:44] LABS: ALBUMIN 3.4 g/dl (3.4-5.0); BLOOD UREA NITROGEN 15.3 mg/dL (7-18)
[2023-09-08 15:47] LABS: CREATININE 0.5 mg/dL (0.55-1.3)
[2023-09-08 15:49] LABS: BILIRUBIN,TOTAL 0.3 mg/dL (0.2-1); TOT PROT 7.2 g/dl (6.4-8.2)
== END 2023-09-08 16:43 | disposition home or self-care (01) ==
LOC: JER 14:42
PROC: 3E023GC Introduction of Other Therapeutic Substance into Muscle, Percutaneous Approach (ICD-10-PCS; principal; 2023-09-08)
PROC: 3E0F7GC Introduction of Other Therapeutic Substance into Respiratory Tract, Via Natural or Artificial Opening (ICD-10-PCS; 2023-09-08)
PROC: 3E0F7GC Introduction of Other Therapeutic Substance into Respiratory Tract, Via Natural or Artificial Opening (ICD-10-PCS; 2023-09-08)
DX: J45.901 Unspecified asthma with (acute) exacerbation (principal); R07.89 Other chest pain; R06.02 Shortness of breath; Z20.822 Contact with and (suspected) exposure to COVID-19
CPT/HCPCS: 0241U-QW; 36415; 71046-TC-FY; 80053; 82550; 82803; 84484; 85025; 93005; 93010; 94640; 96372; 99285-25; J1100

== ENCOUNTER 2023-09-30 14:58 | Emergency (ER) | payer MEDICARE ==
[2023-09-30 15:07] VITALS: BP 120/64; PULSE 113; RESP 20; TEMP 98.3; BMI 27.8
[2023-09-30] MEDS ORDERED: ALBUTEROL SO4 2.5/IPRATROPIUM 0.5 INH SOL 3 ML VIAL.NEB. NEB ONE ×2 (15:37→16:21)
[2023-09-30] MEDS ORDERED: predniSONE 10 MG TABLET (UD) ONE (15:37)
[2023-09-30] MEDS ORDERED: predniSONE 20 MG TABLET (UD) ONE (15:37)
[2023-09-30] MEDS: ALBUTEROL SO4 2.5/IPRATROPIUM 0.5 INH SOL 3 ML VIAL.NEB. NEB ONE (15:46)
[2023-09-30] MEDS: predniSONE 20 MG TABLET (UD) PO ONE (15:46)
[2023-09-30] MEDS ORDERED: KETOROLAC TROMETHAMINE 30 MG/1 ML VIAL ONE (16:09)
[2023-09-30] MEDS ORDERED: ALBUTEROL SO4 0.083% IH SOL 2.5 MG/3 ML VIAL.NEB. NEB ONE (17:03)
[2023-09-30] MEDS: ALBUTEROL SULFATE 0.021% (0.63 MG/3 ML) VIAL.NEB NEB ONE (17:07)
== END 2023-09-30 17:43 | disposition home or self-care (01) ==
LOC: JER 14:58
PROC: 3E0F7GC Introduction of Other Therapeutic Substance into Respiratory Tract, Via Natural or Artificial Opening (ICD-10-PCS; principal; 2023-09-30)
PROC: 3E0F7GC Introduction of Other Therapeutic Substance into Respiratory Tract, Via Natural or Artificial Opening (ICD-10-PCS; 2023-09-30)
DX: J45.901 Unspecified asthma with (acute) exacerbation (principal); R07.89 Other chest pain; R06.02 Shortness of breath; R05.9 Cough, unspecified; Z87.891 Personal history of nicotine dependence
CPT/HCPCS: 71046-TC-FY; 93005; 93010; 94640; 99284-25

== ENCOUNTER 2023-10-06 20:41 | Inpatient (IN) | payer MEDICARE ==
[2023-10-06 20:54] VITALS: TEMP 98.2
[2023-10-06] MEDS ORDERED: ALBUTEROL SO4 2.5/IPRATROPIUM 0.5 INH SOL 3 ML VIAL.NEB. NEB ONE ×2 (20:56→23:33)
[2023-10-06] MEDS ORDERED: MAGNESIUM SULFATE IN WATER 2 GM/50 ML IVPB IVPB ONE (21:49)
[2023-10-06] MEDS ORDERED: ALBUTEROL SO4 2.5/IPRATROPIUM 0.5 INH SOL 3 ML VIAL.NEB. NEB PRN (21:52)
[2023-10-06] MEDS: MAGNESIUM SULF 50% (8.12 MEQ/2 ML-1 GM VIAL) IVPB ONE (22:01)
[2023-10-06 22:08] LABS: BASO % 0.6 % (0-2.0); EOS % 19.4 % (0-4.5); HEMATOCRIT 39.2 % (32.4-45.2); HEMOGLOBIN 13.3 GM/dL (10.7-15.3); LYMPH % 19.7 % (8-40); MCH 30.8 pg (25.7-33.7); MCHC 33.9 g/dl (32.0-36.0); MEAN CELL VOLUME 90.8 fl (80-96); MEAN PLT VOLUME 7.3 fl (7.5-11.1); MONO % 3.9 % (3.8-10.2); NEUT % 56.4 % (42.8-82.8); PLATELET COUNT 329 10^3/uL (134-434); RBC 4.31 M/mm3 (3.60-5.2); RDW 14.2 % (11.6-15.6); WHITE BLOOD COUNT 7.9 K/mm3 (4.0-10.0)
[2023-10-06 22:17] LABS: VENOUS BASE EXCESS -2.3 mmol/L (-2-2); VENOUS O2 SATURATION 63.6 % (70-80); VENOUS PCO2 41.6 mmHg (38-52); VENOUS PH 7.361 (7.310-7.410)
[2023-10-06 22:31] LABS: POTASSIUM 3.5 mmol/L (3.5-5.1)
[2023-10-06 22:33] LABS: ALBUMIN 3.8 g/dl (3.4-5.0); BLOOD UREA NITROGEN 18.8 mg/dL (7-18); CALCIUM 9.2 mg/dL (8.5-10.1)
[2023-10-06 22:36] LABS: CREATININE 0.8 mg/dL (0.55-1.3)
[2023-10-06 22:38] LABS: BILIRUBIN,TOTAL 0.2 mg/dL (0.2-1); TOT PROT 7.5 g/dl (6.4-8.2)
[2023-10-06 23:49] LABS: PH,URINE 6.5 (5.0-8.0); URINE APPEARANCE CLEAR; URINE BILIRUBIN NEGATIVE (NEGATIVE); URINE COLOR YELLOW; URINE GLUCOSE (UA) NEGATIVE (NEGATIVE); URINE KETONE NEGATIVE (NEGATIVE); URINE LEUK ESTERASE NEGATIVE (NEGATIVE); URINE NITRITE NEGATIVE (NEGATIVE); URINE PROTEIN NEGATIVE (NEGATIVE); URINE UROBILINOGEN 0.2 mg/dL (0.2-1.0)
[2023-10-07] MEDS: methylPREDNISolone NA SUCC 40 MG/1 ML VIAL IVPUSH SCH (02:49)
[2023-10-07 03:36] VITALS: PULSE 107; BMI 28.1
[2023-10-07] MEDS: ALBUTEROL SO4 2.5/IPRATROPIUM 0.5 INH SOL 3 ML VIAL.NEB. NEB SCH (08:10)
[2023-10-07 09:12] LABS: HEMATOCRIT 38.4 % (32.4-45.2); HEMOGLOBIN 12.9 GM/dL (10.7-15.3); MCH 31.3 pg (25.7-33.7); MCHC 33.5 g/dl (32.0-36.0); MEAN CELL VOLUME 93.4 fl (80-96); MEAN PLT VOLUME 7.7 fl (7.5-11.1); PLATELET COUNT 337 10^3/uL (134-434); RBC 4.12 M/mm3 (3.60-5.2); WHITE BLOOD COUNT 6.2 K/mm3 (4.0-10.0)
[2023-10-07 09:33] LABS: POTASSIUM 4.1 mmol/L (3.5-5.1)
[2023-10-07 09:34] LABS: CALCIUM 9.7 mg/dL (8.5-10.1)
[2023-10-07 09:35] LABS: ALBUMIN 3.4 g/dl (3.4-5.0); BLOOD UREA NITROGEN 19.6 mg/dL (7-18); MAGNESIUM 2.6 mg/dL (1.8-2.4)
[2023-10-07 09:38] LABS: CREATININE 0.7 mg/dL (0.55-1.3)
[2023-10-07 09:40] LABS: BILIRUBIN,TOTAL 0.3 mg/dL (0.2-1); TOT PROT 7.2 g/dl (6.4-8.2)
[2023-10-07 09:44] VITALS: BP 117/58; RESP 19
[2023-10-07] MEDS: PANTOPRAZOLE 40 MG TABLET PO SCH (10:31)
[2023-10-07] MEDS: ENOXAPARIN NA (PORCINE) 40 MG/0.4 ML DISP.SYRIN SQ SCH (10:31)
[2023-10-07] MEDS: predniSONE 20 MG TABLET (UD) PO SCH (10:31)
[2023-10-07] MEDS: BUDESONIDE/FORMETEROL FUMARATE 80/4.5 mcg INHALER IH SCH (10:32)
[2023-10-07] MEDS: AZITHROMYCIN IVPB 500 MG/250 ML BAG IVPB SCH (10:32)
[2023-10-07] MEDS ORDERED: MONTELUKAST NA 10 MG TABLET PO SCH (22:00)
== END 2023-10-07 13:22 | disposition home or self-care (01) | DRG 203 ==
LOC: JER 20:41 → OBSVTOIN 10-07 00:17 → JERBED 10-07 00:17 → J5S 10-07 02:26
PROVIDERS: ADMIT Internal Medicine; ATTEND Internal Medicine
DX: J45.901 Unspecified asthma with (acute) exacerbation (principal); J44.9 Chronic obstructive pulmonary disease, unspecified; E78.5 Hyperlipidemia, unspecified; R07.89 Other chest pain; R06.02 Shortness of breath
CPT/HCPCS: 0241U-QW; 36415; 71045-TC-FY; 80053; 81003; 82803; 83735; 85025; 85027; 93005; 93010; 94640; 97116-GP; 97161-GP; 99285-25

== ENCOUNTER 2024-12-24 14:26 | Emergency (ER) | payer MEDICARE ==
[2024-12-24 14:47] VITALS: TEMP 98.2; BMI 27.8
[2024-12-24] MEDS ORDERED: KETOROLAC TROMETHAMINE 30 MG/1 ML VIAL ONE (16:10)
[2024-12-24] MEDS: KETOROLAC TROMETHAMINE 30 MG/1 ML VIAL IM ONE (16:21)
[2024-12-24 16:28] LABS: ABSOLUTE IMMATURE GRANULOCYTES 0.00 x10^3/uL (0.0-0.031); BASOPHILS # 0.04 x10^3/uL (0.01-0.08); EOSINOPHIL % 10.5 % (0.7-5.8); EOSINOPHILS # 0.52 x10^3/uL (0.04-0.36); MCHC 34.3 g/dl (32.2-35.5); MEAN CELL VOLUME 94.6 fl (79.4-94.8); MEAN PLT VOLUME 9.2 fl (9.4-12.3); MONOCYTE # 0.38 x10^3/uL (0.24-0.86); MONOCYTE % 7.7 % (4.7-12.5); RDW 14.4 % (12.4-16.6)
[2024-12-24 17:00] LABS: GLUCOSE,RANDOM 92.0 mg/dL (74-106); TOT PROT 7.9 g/dl (6.4-8.2)
[2024-12-24 17:01] LABS: CO2 23.0 mmol/L (21-32)
[2024-12-24 17:02] LABS: ALK PHOS 87.0 U/L (40-150)
[2024-12-24 17:05] LABS: CREATININE 0.58 mg/dL (0.55-1.3); SGOT/AST 23.0 U/L (5-34); SGPT/ALT 16.0 U/L (0-55)
[2024-12-24 17:12] VITALS: BP 130/70; PULSE 70; RESP 15
== END 2024-12-24 17:18 | disposition home or self-care (01) ==
LOC: JER 14:26
PROC: 3E0233Z Introduction of Anti-inflammatory into Muscle, Percutaneous Approach (ICD-10-PCS; principal; 2024-12-24)
DX: M54.50 Low back pain, unspecified (principal); M54.2 Cervicalgia; M25.511 Pain in right shoulder; M25.512 Pain in left shoulder; M79.645 Pain in left finger(s)
CPT/HCPCS: 36415; 80053; 85025; 96372; 99284-25